=== PATIENT | male | born 1955 | race Caucasian/White ===

== ENCOUNTER → 2020-11-19 | Outpatient (CLI) | payer OTHER | END | disposition home or self-care (01) | LOC: RAD 10:44 | PROVIDERS: ATTEND Family Medicine | DX: M25.752 Osteophyte, left hip (principal) | CPT/HCPCS: 73523 ==

== ENCOUNTER → 2021-01-14 | Outpatient (CLI) | payer OTHER ==
[~2021-01-14] MED LIST: OMNIPAQUE 350 MG/ML, 150 ML BOTTLE ONE
== END | disposition home or self-care (01) ==
LOC: CFH 14:08
PROVIDERS: ATTEND Physician Assistant
DX: N13.2 Hydronephrosis with renal and ureteral calculous obstruction (principal)
CPT/HCPCS: 74178; Q9967

== ENCOUNTER 2021-01-24 13:07 | Day surgery (SDC) | payer OTHER ==
[~2021-01-24] VITALS: Ht 167.6 cm; Wt 71.6 kg
[~2021-01-24 13:07] MED LIST changes: +B Complex; +CHOND; +GLUCOSAMINE; +LEVO75TA5 PO; +MULT-449 PO; -OMNIPAQUE 350 MG/ML, 150 ML BOTTLE ONE; +TAMS-11 PO; +Vitamin D; +allergy medicine; +iron
[2021-01-24] MEDS ORDERED: CHLORHEXIDINE 15 ML UDC PO ONE (13:30)
[2021-01-24] MEDS ORDERED: LACTATED RINGERS 1,000 ML IV SCH (13:30)
[2021-01-24 13:39] VITALS: BP 128/82
[2021-01-24] MEDS ORDERED: MIDAZOLAM 1 MG/ML, 2ML ONE (14:17)
[2021-01-24] MEDS ORDERED: FENTANYL PF 250 MCG/5ML ONE (14:18)
[2021-01-24] MEDS ORDERED: HYDROmorphone 1 MG/ML, 1ML INJ IVPush PRN (14:30)
[2021-01-24] MEDS ORDERED: hydrALAzine 20 MG/ML, 1ML IV PRN (14:30)
[2021-01-24] MEDS ORDERED: PROMETHAZINE 25 MG/ML, 1ML IVPush PRN (14:30)
[2021-01-24] MEDS ORDERED: MIDAZOLAM 1 MG/ML, 2ML IV PRN (14:30)
[2021-01-24] MEDS ORDERED: ACETAMINOPHEN 325 MG TABLET PO PRN (14:30)
[2021-01-24] MEDS ORDERED: MEPERIDINE/PF 25MG/0.5ML IVPush PRN (14:30)
[2021-01-24] MEDS ORDERED: OMNIPAQUE 350 MG/ML, 50 ML BOTTLE ONE (15:18)
[2021-01-24] MEDS ORDERED: PROPOFOL 10 MG/ML, 20ML ONE (17:07)
[2021-01-24] MEDS ORDERED: NEOSTIGMINE 1 MG/ML, 10ML ONE (17:07)
[2021-01-24] MEDS ORDERED: ONDANSETRON 2MG/ML, 2ML ONE (17:07)
[2021-01-24] MEDS ORDERED: ROCURONIUM 10MG/ML,5ML ONE (17:07)
[2021-01-24] MEDS ORDERED: DEXAMETHASONE 4 MG/ML, 1ML ONE (17:07)
[2021-01-24] MEDS ORDERED: LIDOCAINE-MPF 2% ,5ML ONE (17:07)
[2021-01-24] MEDS ORDERED: GLYCOPYRROLATE 0.2MG/1ML, 5ML ONE (17:07)
[2021-01-24] MEDS ORDERED: CEFAZOLIN 1,000 MG ONE (17:07)
[2021-01-24] MEDS ORDERED: FENTANYL PF 100 MCG/2ML ONE (17:36)
[2021-01-24] MEDS ORDERED: OXYcodone 5 MG/5 ML ORAL.SOL UDC ONE ×2 (17:37→17:48)
[2021-01-24] MEDS: FENTANYL PF 100 MCG/2ML IV PRN ×2 (17:40→17:45)
[2021-01-24] MEDS: OXYcodone 5 MG/5 ML ORAL.SOL UDC PO PRN ×2 (17:40→17:49)
== END 2021-01-24 19:20 | disposition home or self-care (01) ==
LOC: OUT 13:07
PROVIDERS: ATTEND Urology
DX: N13.2 Hydronephrosis with renal and ureteral calculous obstruction (principal); N40.1 Benign prostatic hyperplasia with lower urinary tract symptoms; R35.0 Frequency of micturition; R39.14 Feeling of incomplete bladder emptying; N39.44 Nocturnal enuresis; E03.9 Hypothyroidism, unspecified; Z20.822 Contact with and (suspected) exposure to COVID-19; Z79.890 Hormone replacement therapy; Z79.899 Other long term (current) drug therapy; Z87.442 Personal history of urinary calculi; Z80.52 Family history of malignant neoplasm of bladder; Z84.1 Family history of disorders of kidney and ureter
CPT/HCPCS: 52356; 74420; 93005; C1726; C1758; C1769; C2617; J0690; J1100; J2250; J2405; J2704; J2710; J3010; J7120; Q9967; U0003; U0005

== ENCOUNTER → 2021-02-04 | Outpatient (CLI) | payer OTHER | END | disposition home or self-care (01) | LOC: RAD 10:16 | PROVIDERS: ATTEND Urology | DX: N20.0 Calculus of kidney (principal) | CPT/HCPCS: 74018 ==

== ENCOUNTER 2021-02-14 06:57 | Day surgery (SDC) | payer OTHER ==
[~2021-02-14] VITALS: Ht 167.6 cm; Wt 71.3 kg
[2021-02-14] MEDS ORDERED: CHLORHEXIDINE 15 ML UDC PO ONE (08:00)
[2021-02-14] MEDS ORDERED: LACTATED RINGERS 1,000 ML IV SCH (08:00)
[2021-02-14 08:06] VITALS: BP 127/85
[2021-02-14] MEDS ORDERED: CHLORHEXIDINE 15 ML UDC ONE (08:16)
[2021-02-14] MEDS ORDERED: MIDAZOLAM 1 MG/ML, 2ML ONE (08:33)
[2021-02-14] MEDS ORDERED: FENTANYL PF 250 MCG/5ML ONE (08:34)
[2021-02-14] MEDS ORDERED: ONDANSETRON 2MG/ML, 2ML ONE (09:33)
[2021-02-14] MEDS ORDERED: EPHEDRINE 50 MG/ML, 1ML ONE (09:33)
[2021-02-14] MEDS ORDERED: KETOROLAC 30 MG/1 ML ONE (09:33)
[2021-02-14] MEDS ORDERED: PROPOFOL 10 MG/ML, 20ML ONE (09:33)
[2021-02-14] MEDS ORDERED: DEXAMETHASONE 4 MG/ML, 1ML ONE (09:33)
[2021-02-14] MEDS ORDERED: CEFAZOLIN 1,000 MG ONE (09:33)
[2021-02-14] MEDS ORDERED: LABETALOL 5MG/ML, 20ML IV PRN (10:00)
[2021-02-14] MEDS ORDERED: OXYcodone 5 MG/5 ML ORAL.SOL UDC PO PRN (10:00)
[2021-02-14] MEDS ORDERED: ACETAMINOPHEN 325 MG TABLET PO PRN (10:00)
[2021-02-14] MEDS ORDERED: FENTANYL PF 100 MCG/2ML IV PRN (10:00)
[2021-02-14] MEDS ORDERED: PROMETHAZINE 12.5 MG SUPP PR PRN (10:00)
[2021-02-14] MEDS ORDERED: ONDANSETRON 2MG/ML, 2ML IVPush PRN (10:00)
[2021-02-14] MEDS ORDERED: METOPROLOL 1 MG/ML, 5ML IV PRN (10:00)
[2021-02-14] MEDS ORDERED: HYDROmorphone 1 MG/ML, 1ML INJ IVPush PRN (10:00)
[2021-02-14] MEDS ORDERED: hydrALAzine 20 MG/ML, 1ML IV PRN (10:00)
[2021-02-14] MEDS ORDERED: MEPERIDINE/PF 25MG/0.5ML IVPush PRN (10:00)
[2021-02-14] MEDS ORDERED: FENTANYL PF 100 MCG/2ML ONE (10:32)
[2021-02-14] MEDS ORDERED: OMNIPAQUE 350 MG/ML, 50 ML BOTTLE ONE (10:36)
[2021-02-14] MEDS ORDERED: OMNIPAQUE 350 MG/ML, 50 ML BOTTLE IV ONE (11:33)
[2021-02-14] MEDS ORDERED: OXYcodone 5 MG/5 ML ORAL.SOL UDC ONE (12:10)
[2021-02-14] MEDS ORDERED: ACETAMINOPHEN 325 MG TABLET ONE (12:10)
== END 2021-02-14 14:00 | disposition home or self-care (01) ==
LOC: OUT 06:57
PROVIDERS: ATTEND Urology
DX: N20.1 Calculus of ureter (principal); N40.1 Benign prostatic hyperplasia with lower urinary tract symptoms; R35.0 Frequency of micturition; R39.14 Feeling of incomplete bladder emptying; R35.1 Nocturia; N39.0 Urinary tract infection, site not specified; Z20.822 Contact with and (suspected) exposure to COVID-19; Z79.890 Hormone replacement therapy; Z79.891 Long term (current) use of opiate analgesic; Z79.899 Other long term (current) drug therapy; Z87.442 Personal history of urinary calculi; Z80.52 Family history of malignant neoplasm of bladder; Z84.1 Family history of disorders of kidney and ureter
CPT/HCPCS: 52356; 87635; 93005; C1769; C2617; J0690; J1100; J1885; J2250; J2405; J2704; J3010; J7120; Q9967; 76000

== ENCOUNTER → 2021-04-16 | Outpatient (CLI) | payer OTHER | END | disposition home or self-care (01) | LOC: CFH 10:09 | PROVIDERS: ATTEND Physician Assistant | DX: N13.30 Unspecified hydronephrosis (principal); N20.0 Calculus of kidney; N20.1 Calculus of ureter | CPT/HCPCS: 74176 ==

== ENCOUNTER 2021-05-15 10:11 | Outpatient (CLI) | payer MEDICARE ==
[2021-05-15 10:45] LABS: ALANINE AMINOTRANSFERASE 50 U/L (12-78); ALBUMIN 3.8 g/dL (3.4-5.0); ANION GAP 6 mmol/L (5-15); CALCIUM 9.6 mg/dL (8.5-10.1); CHLORIDE 106 mmol/L (98-107)
[2021-05-15 10:48] LABS: ALKALINE PHOSPHATASE 62 U/L (45-117); CHOL/HDL RATIO 2.6; CHOLESTEROL, TOTAL 177 mg/dL (140-239); CREATININE 1.08 mg/dL (0.7-1.3); HDL CHOL % 38 % (26-37); HDL CHOLESTEROL (DIRECT) 67 mg/dL (40-60); LDL CHOLESTEROL,CALCULATED 94 mg/dL (54-169); LDL/HDL RATIO 1.4 (0.5-3.0); TOTAL PROTEIN 7.2 g/dL (6.4-8.2); TRIGLYCERIDES 81 mg/dL (50-200); VLDL CHOLESTEROL 16 mg/dL (0-25)
== END 2021-05-15 23:59 | disposition home or self-care (01) ==
LOC: LAB 10:11
PROVIDERS: ATTEND Family Medicine
DX: Z13.228 Encounter for screening for other metabolic disorders (principal); R73.09 Other abnormal glucose; N18.30 Chronic kidney disease, stage 3 unspecified; Z79.899 Other long term (current) drug therapy
CPT/HCPCS: 36415; 80053; 80061; 83036